=== PATIENT | male | born 1950 | race Caucasian/White ===

== ENCOUNTER 2020-10-23 17:14 | Emergency (ER) | payer MEDICARE ==
[2020-10-23 18:59] LABS: HEMOGLOBIN 15.8 gm/dl (14.0-17.5); RED BLOOD COUNT 5.51 M/UL (4.20-5.50); WHITE BLOOD COUNT 11.3 K/UL (4.5-11.0)
[2020-10-23 19:26] LABS: BUN/CREATININE RATIO 20 (0-10)
== END 2020-10-23 21:00 | disposition home or self-care (01) ==
LOC: ER1 17:14
PROVIDERS: Nurse Practitioner
DX: M25.511 Pain in right shoulder (principal); E78.5 Hyperlipidemia, unspecified; E11.9 Type 2 diabetes mellitus without complications; I10 Essential (primary) hypertension; Z88.5 Allergy status to narcotic agent; Z87.891 Personal history of nicotine dependence
CPT/HCPCS: 73030; 80053; 82550; 82553; 83874; 84484; 85025; 99283